=== PATIENT | male | born 1965 | race Caucasian/White ===

== ENCOUNTER 2016-07-18 21:26 | Emergency (ER) | payer OTHER ==
[~2016-07-18] VITALS: Ht 177.8 cm; Wt 85.7 kg
[2016-07-18 21:35] VITALS: BP 128/80; PULSE 86; RESP 18; TEMP 97.7; O2SAT 97
[2016-07-18] MEDS ORDERED: METF1000 PO (22:02)
[2016-07-18] MEDS ORDERED: SIMV20TA PO (22:02)
[2016-07-18] MEDS ORDERED: SODIUM CHLOR 0.9% 1000 ML INJ 1,000 ML IV SCH ×2 (22:11→23:15)
--- NOTE | 2016-07-18 22:11 | PD ---
HPI Chief Complaint: GI Complaint Time Seen by Provider: 22:00 Travel History International Travel<30 days: No Contact w/Intl Traveler<30days: No Traveled to known affect area: No History of Present Illness HPI The patient is a 51-year-old male that complains of sudden onset of periumbilical pain, nausea and vomiting at about 745. He ate about an hour and a half previously to that time. He denies any fever or diarrhea. He still has some nausea now. He does have a history of elevated cholesterol and diabetes mellitus which is metformin controlled. He denies smoking and denies any alcohol. He denies any history of ulcer. He denies any history of bowel problems in the past. He still has his appendix and gallbladder, his only abdominal surgery is that of bilateral inguinal hernia repair and umbilical hernia repair. He denies any diarrhea. [facility] Social History Tobacco Use: No Allergies-Medications (Allergen,Severity, Reaction): Coded Allergies: No Known Allergies (Unverified , 07/18/16) Reported Meds & Prescriptions Reported Meds & Active Scripts Active Reported Simvastatin 20 Mg Tab 20 Mg PO HS Metformin (Metformin HCl) 1,000 Mg Tab 1,000 Mg PO BIDPC With meals Review of Systems Except as stated in HPI: all other systems reviewed are Neg Physical Exam Narrative GENERAL: The patient is alert and oriented 3, slightly dehydrated-appearing in slight apparent distress with his abdominal discomfort. His vital signs are normal. SKIN: Warm and dry. HEAD: Atraumatic. Normocephalic. EYES: Pupils equal and round. No scleral icterus. No injection or drainage. ENT: No nasal bleeding or discharge. Mucous membranes pink and moist. NECK: Trachea midline. No JVD. CARDIOVASCULAR: Regular rate and rhythm. No murmur appreciated. RESPIRATORY: No accessory muscle use. Clear to auscultation. Breath sounds equal bilaterally. GASTROINTESTINAL: Abdomen soft, with tenderness to direct palpation in the periumbilical area, nondistended. Hepatic and splenic margins not palpable. No guarding or rebound is present. MUSCULOSKELETAL: No obvious deformities. No clubbing. No cyanosis. No edema. NEUROLOGICAL: Awake and alert. No obvious cranial nerve deficits. Motor grossly within normal limits. Normal speech. PSYCHIATRIC: Appropriate mood and affect; insight and judgment normal. Data Data Last Documented VS Vital Signs Date Time Temp Pulse Resp B/P Pulse Ox O2 Delivery O2 Flow Rate FiO2 07/18/16 21:35 97.7 86 18 128/80 97 Orders Complete Blood Count With Diff (07/18/16 22:11) Comprehensive Metabolic Panel (07/18/16 22:11) Lipase (07/18/16 22:11) Urinalysis - C+S If Indicated (07/18/16 22:11) Iv Access Insert/Monitor (07/18/16 22:11) Ecg Monitoring (07/18/16 22:11) Oximetry (07/18/16 22:11) Ondansetron Inj (Zofran Inj) (07/18/16 22:15) Pantoprazole Inj (Protonix Inj) (07/18/16 22:15) Sodium Chlor 0.9% 1000 Ml Inj (Ns 1000 M (07/18/16 22:11) Sodium Chloride 0.9% Flush (Ns Flush) (07/18/16 22:15) Famotidine Inj (Pepcid Inj) (07/18/16 22:15) Ct Abd/Pel W Iv Contrast(Rout) (07/18/16 22:49) Sodium Chlor 0.9% 1000 Ml Inj (Ns 1000 M (07/18/16 23:15) Labs Laboratory Tests Test 07/18/16 07/18/16 22:10 22:29 White Blood Count 19.8 TH/MM3 Red Blood Count 5.56 MIL/MM3 Hemoglobin 15.5 GM/DL Hematocrit 47.5 % Mean Corpuscular Volume 85.4 FL Mean Corpuscular Hemoglobin 27.9 PG Mean Corpuscular Hemoglobin 32.7 % Concent Red Cell Distribution Width 12.4 % Platelet Count 271 TH/MM3 Mean Platelet Volume 8.7 FL Neutrophils (%) (Auto) 84.7 % Lymphocytes (%) (Auto) 5.9 % Monocytes (%) (Auto) 6.8 % Eosinophils (%) (Auto) 0.6 % Basophils (%) (Auto) 2.0 % Neutrophils # (Auto) 16.8 TH/MM3 Lymphocytes # (Auto) 1.2 TH/MM3 Monocytes # (Auto) 1.3 TH/MM3 Eosinophils # (Auto) 0.1 TH/MM3 Basophils # (Auto) 0.4 TH/MM3 CBC Comment DIFF FINAL Differential Comment Sodium Level 143 MEQ/L Potassium Level 3.9 MEQ/L Chloride Level 106 MEQ/L Carbon Dioxide Level 30.5 MEQ/L Anion Gap 7 MEQ/L Blood Urea Nitrogen 20 MG/DL Creatinine 0.95 MG/DL Estimat Glomerular Filtration 83 ML/MIN Rate Random Glucose 162 MG/DL Calcium Level 8.0 MG/DL Total Bilirubin 0.2 MG/DL Aspartate Amino Transf 19 U/L (AST/SGOT) Alanine Aminotransferase 36 U/L (ALT/SGPT) Alkaline Phosphatase 56 U/L Total Protein 7.2 GM/DL Albumin 3.8 GM/DL Lipase 158 U/L [facility] Medical Decision Making Medical Screen Exam Complete: Yes Emergency Medical Condition: Yes Medical Record Reviewed: Yes Interpretation(s) The CBC shows a white count of 19,800 with 85% neutrophils. The complete metabolic profile shows a BUN of 20, glucose 162, GFR of 83 with calcium 8.0 but is otherwise unremarkable. The lipase is normal. Differential Diagnosis Early appendicitis, gastritis, gastroenteritis, ulcer pain, food poisoning, bacterial enteritis, colitis, electrolyte disorder, dehydration Narrative Course The time is now 1105 and the patient's pain has completely resolved. He has no nausea either. The patient has a high white count that his pain and nausea have completely resolved. At this point the patient wants to go home. If the pain returns she should return to emergency department. Reevaluating his abdomen, his abdomen is soft, nontender with no guarding or rebound. There is no distention on the abdomen. The patient will get a prescription for Phenergan should he have a recurrence of the nausea. If he has pain he should return to emergency department. Impression: Abdominal pain unknown etiologyresolved Plan: The patient should return should he have recurrence of the pain. He is given Phenergan should he have recurrence of the nausea. He should limit his diet to clear liquids in the next 24 hours. Diagnosis Primary Impression: Abdominal pain of unknown etiology Med/Other Pt SpecificInfo: Prescription(s) given Scripts Promethazine (Phenergan)25 Mg Tab25 Mg PO Q6H PRN (Nausea/Vomiting) #21 TAB Ref 0 Prov:Basil Cardona MD 07/18/16 Disposition: DISCHARGE HOME Condition: Stable Basil Cardona MD Jul 18, 2016 22:11
[2016-07-18] MEDS ORDERED: SODIUM CHLORIDE 0.9% FLUSH 5 ML FLUSH IVF PRN (22:15)
[2016-07-18] MEDS ORDERED: PANTOPRAZOLE SODIUM 40 MG VIAL IVP ONE (22:15)
[2016-07-18] MEDS ORDERED: ONDANSETRON HCL 4 MG/2 ML VIAL IVP ONE (22:15)
[2016-07-18] MEDS ORDERED: FAMOTIDINE 20 MG/2 ML VIAL IV PUSH ONE (22:15)
[2016-07-18 22:21] LABS: AUTOMATED NEUTROPHIL # 16.8 TH/MM3 (1.8-7.7); BASOPHIL # 0.4 TH/MM3 (0-0.2); EOSINOPHIL # 0.1 TH/MM3 (0-0.4); EOSINOPHIL % 0.6 % (0.0-4.0); HEMATOCRIT 47.5 % (39.0-51.0); LYMPH % 5.9 % (9.0-44.0); LYMPHOCYTE # 1.2 TH/MM3 (1.0-4.8); MEAN CELL VOLUME 85.4 FL (80.0-100.0); MEAN CORPUSCULAR HEMOGLOBIN 27.9 PG (27.0-34.0); MEAN CORPUSCULAR HGB CONC 32.7 % (32.0-36.0); MONO % 6.8 % (0.0-8.0); NEUT % 84.7 % (16.0-70.0); PLATELET COUNT 271 TH/MM3 (150-450); RED BLOOD COUNT 5.56 MIL/MM3 (4.50-5.90); RED CELL DISTRIBUTION WIDTH 12.4 % (11.6-17.2); WHITE BLOOD COUNT 19.8 TH/MM3 (4.0-11.0)
[2016-07-18 22:30] LABS: HEMO FLAGS DIFF FINAL
[2016-07-18 22:45] LABS: CHLORIDE 106 MEQ/L (98-107); POTASSIUM 3.9 MEQ/L (3.5-5.1); SODIUM (NA) 143 MEQ/L (136-145)
[2016-07-18 22:49] LABS: ANION GAP 7 MEQ/L (5-15); BICARBONATE 30.5 MEQ/L (21.0-32.0); BLOOD UREA NITROGEN 20 MG/DL (7-18)
[2016-07-18 22:52] LABS: ALT (GPT) 36 U/L (12-78); AST (GOT) 19 U/L (15-37); GLOMERULAR FILTRATION RATE 83 ML/MIN (>89)
[2016-07-18 22:53] LABS: TOTAL BILIRUBIN ADULT 0.2 MG/DL (0.2-1.0)
[2016-07-18 22:55] LABS: ALKALINE PHOSPHATASE 56 U/L (45-117)
[2016-07-18] MEDS ORDERED: PROM25TA5 PO (23:13)
[2016-07-18 23:36] VITALS: BP 124/80; PULSE 82; RESP 16; O2SAT 98
== END 2016-07-18 23:43 | disposition home or self-care (01) ==
LOC: EDBD → PHED 21:26
DX: R10.9 Unspecified abdominal pain (principal); E11.9 Type 2 diabetes mellitus without complications; E78.00 Pure hypercholesterolemia, unspecified; Z79.4 Long term (current) use of insulin
CPT/HCPCS: 80053; 83690; 85025; 96361; 96374; 96375; 99284; C9113; J2405; J7030

== ENCOUNTER 2016-07-22 16:27 | Inpatient (IN) | payer OTHER ==
[~2016-07-22] VITALS: Ht 177.8 cm; Wt 82.5 kg
[~2016-07-22 16:27] MED LIST: METF1000 PO; PROM25TA5 PO; SIMV20TA PO
[2016-07-22 16:48] VITALS: BP 173/97; PULSE 74; RESP 16; TEMP 98.9; O2SAT 96
--- NOTE | 2016-07-22 16:59 | PD ---
HPI Chief Complaint: Alcohol/Drug Intoxication Time Seen by Provider: 16:32 Travel History International Travel<30 days: No Contact w/Intl Traveler<30days: No Traveled to known affect area: No History of Present Illness HPI Patient is a 51-year-old male presents the emergency department on the next part they. Per expert they and in speaking with patient's mother and father, Emma and Swapnil, patient broke up with his girlfriend approximately 1.5 years ago. Since, he has been stalking her aggressively. She has filed legal action against him, restrain order. Mother states that patient has been looking for a gun and she is very fearful for her own life as well as Aktiuska, his ex- girlfriend. Patient has his nephew currently living with him, patient states "he's a free furnace loader". Patient got into an argument with his father this morning about having to require his nephew to pay rent. They got into a verbal argument which prompted mother to go to the court house and patient had a control officer manager sign expert they against him. 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 Here, patient's calm, cooperative. He denies any of this, states that his mother has mild dementia and none of this is true. When I called and spoke with parents, I did not detect any amount of dementia with patient's mother over the phone. PFSH Past Medical History High Cholesterol: Yes Diabetes: Yes Patient Takes Glucophage: Yes Hiatal Hernia: Yes (1986 umbilical hernia) Past Surgical History Abdominal Surgery: Yes (HERNIA) Tonsillectomy: Yes Social History Alcohol Use: No Tobacco Use: No Substance Use: No Allergies-Medications (Allergen,Severity, Reaction): Coded Allergies: No Known Allergies (Unverified , 07/22/16) Reported Meds & Prescriptions Reported Meds & Active Scripts Active Phenergan (Promethazine HCl) 25 Mg Tab 25 Mg PO Q6H PRN Reported Simvastatin 20 Mg Tab 20 Mg PO HS Metformin (Metformin HCl) 1,000 Mg Tab 1,000 Mg PO BIDPC With meals Review of Systems Except as stated in HPI: all other systems reviewed are Neg Physical Exam Narrative GENERAL: Well-appearing male in no acute distress SKIN: Warm and dry. HEAD: Normocephalic. EYES: No scleral icterus. No injection or drainage. ENT: Mucous membranes pink and moist. NECK: Supple CARDIOVASCULAR: Regular rate and rhythm. No murmur appreciated. RESPIRATORY: No accessory muscle use. Clear to auscultation. Breath sounds equal bilaterally. GASTROINTESTINAL: Abdomen soft, non-tender, nondistended. MUSCULOSKELETAL: No obvious deformities. No edema. NEUROLOGICAL: Awake and alert.Motor grossly within normal limits. Normal speech. PSYCHIATRIC: Appropriate mood and affect; insight and judgment normal. Data Data Last Documented VS Vital Signs Date Time Temp Pulse Resp B/P Pulse Ox O2 Delivery O2 Flow Rate FiO2 07/22/16 16:48 98.9 74 16 173/97 96 Orders Complete Blood Count With Diff (07/22/16 16:32) Comprehensive Metabolic Panel (07/22/16 16:32) Psych Screen (07/22/16 16:32) Drug Screen, Random Urine (07/22/16 16:32) Alcohol (Ethanol) (07/22/16 16:32) MDM Medical Decision Making Medical Screen Exam Complete: Yes Emergency Medical Condition: Yes Medical Record Reviewed: Yes Differential Diagnosis 51-year-old male here as a expert today for increasing agitation, stocking a woman and looking for a gun. Differential includes adjustment reaction, schizophrenia, substance induced mood disorder, personality disorder. Narrative Course Patient placed on monitor, IV established and blood obtained. CBC, CMP, blood alcohol level and urine drug screen were ordered and are pending at this time his dictation. Patient signed out to oncoming provider waiting results of the above for medical clearance and psychiatric evaluation. Mery John MD Jul 22, 2016 16:58
[2016-07-22 17:11] LABS: AUTOMATED NEUTROPHIL # 6.8 TH/MM3 (1.8-7.7); BASOPHIL % 0.3 % (0.0-2.0); EOSINOPHIL # 0.1 TH/MM3 (0-0.4); EOSINOPHIL % 1.2 % (0.0-4.0); HEMATOCRIT 45.8 % (39.0-51.0); HEMO FLAGS DIFF FINAL; LYMPH % 21.6 % (9.0-44.0); LYMPHOCYTE # 2.1 TH/MM3 (1.0-4.8); MEAN CELL VOLUME 86.1 FL (80.0-100.0); MEAN CORPUSCULAR HEMOGLOBIN 28.1 PG (27.0-34.0); MEAN CORPUSCULAR HGB CONC 32.6 % (32.0-36.0); MONO % 9.2 % (0.0-8.0); NEUT % 67.7 % (16.0-70.0); PLATELET COUNT 257 TH/MM3 (150-450); RED BLOOD COUNT 5.32 MIL/MM3 (4.50-5.90); RED CELL DISTRIBUTION WIDTH 13.6 % (11.6-17.2)
[2016-07-22 17:18] LABS: AMPHETAMINE, URINE NEG (NEG); BARBITURATES, URINE NEG (NEG); COCAINE, URINE NEG (NEG)
[2016-07-22 17:30] LABS: ANION GAP 8 MEQ/L (5-15)
[2016-07-22 17:33] LABS: ALKALINE PHOSPHATASE 64 U/L (45-117); ALT (GPT) 36 U/L (12-78); AST (GOT) 22 U/L (15-37); BICARBONATE 30.6 MEQ/L (21.0-32.0); BLOOD UREA NITROGEN 16 MG/DL (7-18); CHLORIDE 100 MEQ/L (98-107); GLOMERULAR FILTRATION RATE 71 ML/MIN (>89); POTASSIUM 3.4 MEQ/L (3.5-5.1); SODIUM (NA) 139 MEQ/L (136-145); TOTAL BILIRUBIN ADULT 0.3 MG/DL (0.2-1.0)
--- NOTE | 2016-07-22 17:45 | PD ---
Physical Exam Narrative The patient was evaluated by the previous provider and signed out to me at approximately 5:00 PM pending labs for psychiatric clearance. See her note for further details. Data Data Last Documented VS Vital Signs Date Time Temp Pulse Resp B/P Pulse Ox O2 Delivery O2 Flow Rate FiO2 07/22/16 16:48 98.9 74 16 173/97 96 Orders Complete Blood Count With Diff (07/22/16 16:32) Comprehensive Metabolic Panel (07/22/16 16:32) Psych Screen (07/22/16 16:32) Drug Screen, Random Urine (07/22/16 16:32) Alcohol (Ethanol) (07/22/16 16:32) Labs Laboratory Tests Test 07/22/16 16:52 White Blood Count 10.0 TH/MM3 Red Blood Count 5.32 MIL/MM3 Hemoglobin 14.9 GM/DL Hematocrit 45.8 % Mean Corpuscular Volume 86.1 FL Mean Corpuscular Hemoglobin 28.1 PG Mean Corpuscular Hemoglobin 32.6 % Concent Red Cell Distribution Width 13.6 % Platelet Count 257 TH/MM3 Mean Platelet Volume 8.7 FL Neutrophils (%) (Auto) 67.7 % Lymphocytes (%) (Auto) 21.6 % Monocytes (%) (Auto) 9.2 % Eosinophils (%) (Auto) 1.2 % Basophils (%) (Auto) 0.3 % Neutrophils # (Auto) 6.8 TH/MM3 Lymphocytes # (Auto) 2.1 TH/MM3 Monocytes # (Auto) 0.9 TH/MM3 Eosinophils # (Auto) 0.1 TH/MM3 Basophils # (Auto) 0.0 TH/MM3 CBC Comment DIFF FINAL Differential Comment Sodium Level 139 MEQ/L Potassium Level 3.4 MEQ/L Chloride Level 100 MEQ/L Carbon Dioxide Level 30.6 MEQ/L Anion Gap 8 MEQ/L Blood Urea Nitrogen 16 MG/DL Creatinine 1.09 MG/DL Estimat Glomerular Filtration 71 ML/MIN Rate Random Glucose 174 MG/DL Calcium Level 8.9 MG/DL Total Bilirubin 0.3 MG/DL Aspartate Amino Transf 22 U/L (AST/SGOT) Alanine Aminotransferase 36 U/L (ALT/SGPT) Alkaline Phosphatase 64 U/L Total Protein 7.8 GM/DL Albumin 4.1 GM/DL Urine Opiates Screen NEG Urine Barbiturates Screen NEG Urine Amphetamines Screen NEG Urine Benzodiazepines Screen NEG Urine Cocaine Screen NEG Urine Cannabinoids Screen NEG Ethyl Alcohol Level LESS THAN 3 MG/DL MDM Supervised Visit with AVERY: No Narrative Course Vital signs reviewed. CBC is unremarkable. CMP is unremarkable. Alcohol level is negative. Urine drug screen is negative for all drugs tested. The patient is medically cleared for psychiatric evaluation and disposition by them. Roberto Moreno MD Jul 22, 2016 17:45
[2016-07-23 00:15] VITALS: BP 121/78; PULSE 70; RESP 19; O2SAT 98
[2016-07-23 02:00] VITALS: BP 152/90; PULSE 53; RESP 19; O2SAT 97
[2016-07-23] MEDS ORDERED: SITA50 PO (02:15)
[2016-07-23 06:12] VITALS: BP 145/80; PULSE 50; RESP 17; O2SAT 99
[2016-07-23 10:24] VITALS: BP 167/89; PULSE 81; RESP 18; O2SAT 98
[2016-07-23] MEDS ORDERED: traZODone HCL 50 MG TAB PO PRN (11:15)
[2016-07-23] MEDS ORDERED: LORazepam 1 MG TAB PO PRN (11:15)
[2016-07-23] MEDS ORDERED: MAGNESIUM HYDROXIDE SUSP 30 ML CUP PO PRN (11:15)
[2016-07-23] MEDS ORDERED: ALUMINUM/MAGNESIUM/SIMETH 30 ML CUP PO PRN (11:15)
[2016-07-23] MEDS ORDERED: ACETAMINOPHEN 325 MG TAB PO PRN (11:15)
[2016-07-23] MEDS: NICOTINE 21 MG/24 HR PATCH T-DERMAL SCH (11:30)
--- NOTE | 2016-07-23 15:27 | PD.CONS ---
HPI Service CP Hospitalists Consult Requested By Primary Care Physician Tyrone Joy MD Diagnoses: History of Present Illness Pt admitted to psych unit apparently for adjustment d/o and being aggressive with family per report. Also concern for stalking an ex girlfriend per reports. I am asked to see pt for dm management. pt says he is on an investigational dm med since June and it is working great for his hgba1c. Review of Systems Other negative Past Family Social History Past Medical History dm 2 hyperlipidemia umbilical/inguinal hernia repairs Reported Medications Simvastatin 20 Mg Tab 20 Mg PO HS Metformin (Metformin HCl) 1,000 Mg Tab 1,000 Mg PO BIDPC With meals Takes an investigantional drug 30 minutes daily prior to metformin for dm Allergies: Coded Allergies: No Known Allergies (Unverified , 07/22/16) Family History nc Social History no etoh/tob Physical Exam Vital Signs heart reg lung cta abd s/nt ext no edema Vital Signs Date Time Temp Pulse Resp B/P Pulse Ox O2 Delivery O2 Flow Rate FiO2 07/23/16 10:24 81 18 167/89 98 07/23/16 06:12 50 17 145/80 99 Room Air 07/23/16 02:00 53 19 152/90 97 Room Air 07/23/16 00:15 70 19 121/78 98 Room Air 07/22/16 16:48 98.9 74 16 173/97 96 Laboratory Laboratory Tests Test 07/22/16 16:52 White Blood Count 10.0 Red Blood Count 5.32 Hemoglobin 14.9 Hematocrit 45.8 Mean Corpuscular Volume 86.1 Mean Corpuscular Hemoglobin 28.1 Mean Corpuscular Hemoglobin 32.6 Concent Red Cell Distribution Width 13.6 Platelet Count 257 Mean Platelet Volume 8.7 Neutrophils (%) (Auto) 67.7 Lymphocytes (%) (Auto) 21.6 Monocytes (%) (Auto) 9.2 Eosinophils (%) (Auto) 1.2 Basophils (%) (Auto) 0.3 Neutrophils # (Auto) 6.8 Lymphocytes # (Auto) 2.1 Monocytes # (Auto) 0.9 Eosinophils # (Auto) 0.1 Basophils # (Auto) 0.0 CBC Comment DIFF FINAL Differential Comment Sodium Level 139 Potassium Level 3.4 Chloride Level 100 Carbon Dioxide Level 30.6 Anion Gap 8 Blood Urea Nitrogen 16 Creatinine 1.09 Estimat Glomerular Filtration 71 Rate Random Glucose 174 Calcium Level 8.9 Total Bilirubin 0.3 Aspartate Amino Transf 22 (AST/SGOT) Alanine Aminotransferase 36 (ALT/SGPT) Alkaline Phosphatase 64 Total Protein 7.8 Albumin 4.1 Urine Opiates Screen NEG Urine Barbiturates Screen NEG Urine Amphetamines Screen NEG Urine Benzodiazepines Screen NEG Urine Cocaine Screen NEG Urine Cannabinoids Screen NEG Ethyl Alcohol Level LESS THAN 3 Result Diagram: 07/22/16165107/22/161651 Assessment and Plan Problem List: (1) DM (diabetes mellitus) Status: Chronic Plan: Pt admitted to psych unit for adjustment d/o. I was asked to monitor his dm pt is on metformin bid and says he takes an investigational drug daily 30min prior to morning dose of metformin. He says it has already lowered his hgba1c. ssi while in psych unit otherwise pt is medically stable for d/c home anytime. Remigio Sanchez MD Jul 23, 2016 15:27
--- NOTE | 2016-07-23 15:29 | MH ---
cc: LATOSHA LUO M.D. DATE OF ADMISSION: 07/23/2016 PRESENTING CHIEF COMPLAINT AND HISTORY OF PRESENT ILLNESS This 50-year-old white male was brought to the emergency room of this hospital under the ex parte initiated by his mother because of increasing aggressive and threatening behavior. According to exparte. He is "prone to violence and puts his hands on anyone who gets in his way." He broke up with his girlfriend and has been stalking her. She had filed a restraining order against him which he reportedly has not been compliant with. He is scheduled to have a court hearing sometime next week. The mother reported that he also had threatened to purchase a gun off of the street. During his evaluation in the emergency room by psychiatric screener he denied all these allegations. He stated that his mother filed this petition in retaliation because he had told his nephew who has been living with him to move out of the apartment because he has not been paying the rent. He stated that he had "no psych issues" and had recently bought a new car and was awarded employee of the year at his job. He denied any previous psychiatric history or intervention. He is on no psychotropic medications. He repeatedly denied any suicidal or homicidal ideations at the time of that assessment. The case was discussed with me and it was felt he needed to be hospitalized for further assessment and treatment. Prior to evaluation case was discussed with the nursing staff on the unit who indicated since admission he has been compliant and cooperative, has not exhibited any aggressive self-destructive behavior nor has he made any threats of harm to self or others. At the time of this evaluation Mr. Rodriguez was pleasant and cooperative though somewhat upset and angry about being on the psychiatric unit. When asked about his understanding of the reason for this hospitalization he responded "I have a 32-year-old nephew who I took in because he did not have much money. He agreed to pay me to 100 ounces a month rent but he has not been paying me. He currently has two jobs and makes good money. I told my dad I was going to kick him out and he did not like it. He told my mom. He is the favorite of my mom so she started yelling at me. Then after some time I heard the operations section manager knocking on the door saying that I needed to go to the hospital. He was also surprised because when he talked to me I was very rational and he could not understand why I needed to go for a "psychiatric evaluation." He went on to emphasize that he has no history of violence has never engaged in self-destructive behavior. However in reviewing his mother statement he was violent toward both of his ex-'s. He broke up with his girlfriend sometime last year but still has been stalking her i.e. sitting outside her home etc. All this was denied by the patient. He went on to say that he was worried about the upcoming hearing next week and needed to be discharged before that. He also stated that his editorial director who is representing him in this case needs to be paid by 07/25/2016. On direct questioning he denied any persistent feeling of sadness, sleep or appetite disturbance. He denied any changes memory or concentration. He repeatedly denied entertaining any suicidal or homicidal ideations or intent. He denied any previous suicide attempts. On further questioning he did not give any history suggestive bipolar affective disorder. He denied experiencing any angry outbursts. He went on to state that he has been working at [employer] for eight years and was awarded employee of the year two years ago. PAST PSYCHIATRIC HISTORY He denied any previous psychiatric intervention. PAST MEDICAL HISTORY Has history of diabetes and is in the role in a steady. And is enrolled in clinical trial. In addition he also has history of hyperlipidemia and is on simvastatin 10. On hyperlipidemia. He denied any other known medical illness. Specifically denied any history of head injury seizures. MEDICATIONS current medications are 1. Simvastatin 20 mg p.o. q.h.s. 2. Metformin 1000 mg p.o. b.i.d. p.c. ALLERGIES He denied any drug allergies. He denied any surgeries. FAMILY HISTORY: Family history is parents live in [place] and they are both retired. She has two sisters. He denied any family history of psychiatric illness. Substance abuse. PERSONAL AND SOCIAL HISTORY His born in [place] and lived in [place]. He finished high school and attended some college but did not finish. He denied any alcohol or drug abuse. He denied any history of involvement with the law except the recent charges of stalking. He was twice. His first marriage ended in divorce after 5 years. He did not have any children from this marriage. His second marriage lasted for 10 years and ended in divorce. He was vague about the circumstances leading to these divorces. He was involved in a relationship with the with a woman for 2 years and that broke up last year. He acknowledged he had difficulty letting go of her but indicated that since the beginning of this year he has been "a lot more comfortable about it." He denied any history of physical or sexual abuse. CLINICAL OBSERVATION/MENTAL STATUS EXAMINATION: At the time of this evaluation Mr. Rodriguez presented as a casually dressed, reasonably well-groomed white male who looked his stated age. He was pleasant and cooperative this interviewer and volunteered information spontaneously but it seemed to give impression of minimizing the circumstances leading to this hospitalization. He repeatedly denied any suicidal or homicidal ideations and claimed his parents retaliated because he threatened to kick his nephew a out who happens to be favorite of his mother. His responses to questions were rational and logical. No overt anger or hostility was noticed. His speech was coherent and appropriate. His affect was appropriate somewhat blunted. Subjectively described his mood as "I have been feeling just fine." There was no evidence of any thought disorder. No geno delusions, auditory or visual hallucinations were noticed or reported. He denied active suicidal or homicidal ideations or intent at this time. As mentioned he repeatedly denied he had no intention whatsoever to harm anybody and he denied he ever intended to purchase a gun. He denied any previous suicide attempts. Cognitive functions he was alert, oriented to place, person situation. Memory immediate he could do 5 days for 4 days backward. Recent he could recall 2/3 objects after 5 minutes. Remote he could recall presidents up to President Guillermo Jr. His attention and concentration was impaired. He could do serial sevens up to 86. His judgment and was felt to be fair. REVIEW OF SYSTEMS He denied any diarrhea, vomiting or abdominal pain. He denied any dysuria major frequency. He denied any chest pain, palpitations or dyspnea on exertion. He denied muscle weakness, numbness or history of seizures. PHYSICAL EXAMINATION Physical examination was not done as this has already been done in the emergency room. No acute medical issues were identified. DIAGNOSTIC IMPRESSION Clinton I: Adjustment reaction with mixed emotional features. 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 Clinton III: Diabetes mellitus, hyperlipidemia. Clinton IV: Severity of psychosocial stressors moderate i.e. problems with family / nephew, breakup with a girlfriend. Clinton V: Current GAF score 40. FORMATION/TREATMENT PLAN: Formation treatment plan based on this evaluation of the background information available to me at this time. Mr. Rodriguez is experiencing emotional distress due to above identified psychosocial stressors. In addition, it appears he has history of poor impulse control which he is denying. He is denying any suicidal or homicidal ideations and disputes the information provided by his mother in the ex parte. As such the parents will be invited to the treatment team tomorrow to gather more information. Above-mentioned issues will be further explored and addressed in individual psychotherapy sessions. He will participate in various other unit activities i.e. occupational therapy, recreational therapy, group therapy. He will be started on small dose of Ativan to reduce his anxiety / agitation. Reduce his anxiety. The treatment / drug regimen will be modified if necessary after further observation and input from the treatment team members. His identified problems are 1. Current psychosocial stressors 2. Poor impulse control / poor anger management. ASSETS: 1. He is verbal. 2. Ability to hold a job. ESTIMATED LENGTH OF STAY: 5-7 days. MD JULIO Ybarra/terry /1:46 PM /2:22 PM
[2016-07-23] MEDS ORDERED: POTASSIUM CHLORIDE 20 MEQ CONTROLLED RELEASE TAB PO ONE (15:30)
[2016-07-23] MEDS ORDERED: DEXTROSE 50% IN WATER 50 ML VIAL(D50) IV PUSH PRN (15:45)
[2016-07-23] MEDS ORDERED: GLUCAGON 1 MG/ML VIAL OTHER PRN (15:45)
[2016-07-23] MEDS: metFORMIN HCL 500 MG TAB PO SCH (18:00)
[2016-07-23 18:56] VITALS: BP 141/79; PULSE 68; RESP 18; TEMP 98.2; O2SAT 97
[2016-07-23] MEDS: REMOVE OLD NICOTINE PATCH T-DERMAL SCH (21:00)
[2016-07-24] MEDS: INSULIN ASPART SUPPLEMENTAL SCALE SQ SCH ×3 (06:16→16:00)
[2016-07-24 06:17] VITALS: BP 143/88; PULSE 51; RESP 16; TEMP 98.1; O2SAT 96
[2016-07-24 08:16] LABS: ANION GAP 6 MEQ/L (5-15); BLOOD UREA NITROGEN 14 MG/DL (7-18); CHLORIDE 103 MEQ/L (98-107); GLOMERULAR FILTRATION RATE 88 ML/MIN (>89); HDL CHOLESTEROL 84.4 MG/DL (40.0-60.0); LDL CHOLESTEROL 38 MG/DL (0-99); SODIUM (NA) 140 MEQ/L (136-145)
[2016-07-24 08:18] LABS: POTASSIUM 4.5 MEQ/L (3.5-5.1)
[2016-07-24] MEDS: NICOTINE 21 MG/24 HR PATCH T-DERMAL SCH (09:00)
[2016-07-24] MEDS: metFORMIN HCL 500 MG TAB PO SCH ×2 (09:28→18:43)
[2016-07-24 16:12] LABS: HEMOGLOBIN A1a 1.4 %; HEMOGLOBIN A1b 2.3 %; HEMOGLOBIN LA1C 2.2 %; HEMOGLOBIN P3 4.3 %
[2016-07-24 18:29] VITALS: BP 127/75; PULSE 104; RESP 16; TEMP 98.1; O2SAT 97
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
[2016-07-24] MEDS: REMOVE OLD NICOTINE PATCH T-DERMAL SCH (21:00)
[2016-07-25 06:19] VITALS: BP 123/68; PULSE 55; RESP 18; TEMP 98; O2SAT 95
[2016-07-25] MEDS: INSULIN ASPART SUPPLEMENTAL SCALE SQ SCH ×2 (07:00→15:52)
[2016-07-25] MEDS: metFORMIN HCL 500 MG TAB PO SCH ×2 (08:56→18:03)
[2016-07-25] MEDS: NICOTINE 21 MG/24 HR PATCH T-DERMAL SCH (08:57)
[2016-07-25] MEDS: ESCITALOPRAM OXALATE 10 MG TAB PO SCH (13:15)
[2016-07-25 19:54] VITALS: BP 132/70; PULSE 65; RESP 16; TEMP 98.3; O2SAT 99
[2016-07-25] MEDS: PRAVASTATIN SOD 40 MG TAB PO SCH (20:26)
[2016-07-25] MEDS: REMOVE OLD NICOTINE PATCH T-DERMAL SCH (20:51)
[2016-07-26 05:33] VITALS: BP 127/63; PULSE 55; RESP 18; TEMP 97.7; O2SAT 97
[2016-07-26] MEDS: INSULIN ASPART SUPPLEMENTAL SCALE SQ SCH ×2 (06:33→15:38)
[2016-07-26] MEDS: NICOTINE 21 MG/24 HR PATCH T-DERMAL SCH (09:00)
[2016-07-26] MEDS: ESCITALOPRAM OXALATE 10 MG TAB PO SCH (09:19)
[2016-07-26] MEDS: metFORMIN HCL 500 MG TAB PO SCH ×2 (09:19→17:21)
[2016-07-26 18:26] VITALS: BP 131/77; PULSE 59; RESP 18; TEMP 98; O2SAT 96
[2016-07-26] MEDS: PRAVASTATIN SOD 40 MG TAB PO SCH (20:55)
[2016-07-26] MEDS: REMOVE OLD NICOTINE PATCH T-DERMAL SCH (21:00)
[2016-07-27 05:57] VITALS: BP 115/59; PULSE 66; RESP 16; TEMP 98.4; O2SAT 99
[2016-07-27] MEDS: INSULIN ASPART SUPPLEMENTAL SCALE SQ SCH ×2 (06:46→16:00)
[2016-07-27] MEDS: ESCITALOPRAM OXALATE 10 MG TAB PO SCH (08:42)
[2016-07-27] MEDS: NICOTINE 21 MG/24 HR PATCH T-DERMAL SCH (08:44)
[2016-07-27] MEDS: metFORMIN HCL 500 MG TAB PO SCH ×2 (09:00→17:32)
[2016-07-27 18:00] VITALS: BP 130/76; PULSE 61; RESP 16; TEMP 98.4
[2016-07-27] MEDS: REMOVE OLD NICOTINE PATCH T-DERMAL SCH (21:00)
[2016-07-27] MEDS: PRAVASTATIN SOD 40 MG TAB PO SCH (21:10)
[2016-07-28 06:25] VITALS: BP 112/67; PULSE 53; RESP 16; TEMP 98.1; O2SAT 99
[2016-07-28] MEDS: INSULIN ASPART SUPPLEMENTAL SCALE SQ SCH ×2 (06:53→16:00)
[2016-07-28] MEDS: ESCITALOPRAM OXALATE 10 MG TAB PO SCH (08:25)
[2016-07-28] MEDS: NICOTINE 21 MG/24 HR PATCH T-DERMAL SCH (08:26)
[2016-07-28] MEDS: metFORMIN HCL 500 MG TAB PO SCH ×2 (08:26→17:09)
[2016-07-28 17:38] VITALS: BP 158/73; PULSE 80; RESP 18; TEMP 98.2; O2SAT 97
[2016-07-28 17:39] VITALS: BP 158/73; PULSE 97; RESP 18; TEMP 98.2; O2SAT 97
[2016-07-28] MEDS ORDERED: METF500 PO (17:55)
[2016-07-28] MEDS ORDERED: PRAV40TA PO (17:55)
[2016-07-28] MEDS ORDERED: SITA1TAB2 PO (17:55)
[2016-07-28] MEDS ORDERED: ESCI10TA PO (17:55)
[2016-07-28 20:09] VITALS: BP 158/73; PULSE 72; RESP 16; TEMP 98.2; O2SAT 97
[2016-07-28] MEDS: REMOVE OLD NICOTINE PATCH T-DERMAL SCH (21:00)
[2016-07-28] MEDS: PRAVASTATIN SOD 40 MG TAB PO SCH (21:17)
[2016-07-29 06:05] VITALS: BP 107/64; PULSE 62; RESP 16; TEMP 98.3; O2SAT 98
[2016-07-29] MEDS: INSULIN ASPART SUPPLEMENTAL SCALE SQ SCH (07:00)
[2016-07-29] MEDS: ESCITALOPRAM OXALATE 10 MG TAB PO SCH (08:40)
[2016-07-29] MEDS: metFORMIN HCL 500 MG TAB PO SCH (08:40)
[2016-07-29] MEDS: NICOTINE 21 MG/24 HR PATCH T-DERMAL SCH (08:51)
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
== END 2016-07-29 15:10 | disposition home or self-care (01) | DRG 882 ==
LOC: NEPA 16:27 → NEDA 07-23 04:12 → H260 07-23 10:09
PROVIDERS: ADMIT Psychiatry & Neurology Psychiatry; ATTEND Psychiatry & Neurology Psychiatry
DX: F43.23 Adjustment disorder with mixed anxiety and depressed mood (principal); Z91.19 Patient's noncompliance with other medical treatment and regimen; E11.9 Type 2 diabetes mellitus without complications; E78.5 Hyperlipidemia, unspecified; F60.3 Borderline personality disorder; F60.81 Narcissistic personality disorder; F60.9 Personality disorder, unspecified
CPT/HCPCS: 80048; 80053; 80061; 80307; 82948; 83036; 85025; 99285; J1815